=== PATIENT | male | born 1990 | race Caucasian/White ===

== ENCOUNTER 2017-07-23 20:56 | Emergency (ER) | payer SELFPAY ==
[~2017-07-23] VITALS: Ht 182.9 cm; Wt 62.6 kg
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
[2017-07-23] MEDS ORDERED: HYDROCODONE/APAP 10/325MG 1 EA TABLET PO ONE (22:30)
[2017-07-23] MEDS ORDERED: HYDROCODONE/APAP 10/325MG 1 EA TABLET ONE (22:37)
--- NOTE | 2017-07-23 22:40 | NUR ---
XRAY AT BEDSIDE
--- NOTE | 2017-07-23 23:08 | NUR ---
EMT AT BEDSIDE TO OBTAIN EKG PER MD ORDERS.
[2017-07-24] VITALS: BP 136/71
--- NOTE | 2017-07-24 00:04 | NUR ---
Patient discharged to home in stable condition. Written and verbal after care instructions given. Patient verbalizes understanding of instruction. PT ambulatory with a steady gait VITAL SIGNS WITHIN NORMAL LIMITS.
== END 2017-07-24 00:01 | disposition home or self-care (01) ==
LOC: ER 20:58
DX: S20.212A Contusion of left front wall of thorax, initial encounter (principal); S70.11XA Contusion of right thigh, initial encounter; F41.9 Anxiety disorder, unspecified; V89.2XXA Person injured in unspecified motor-vehicle accident, traffic, initial encounter; Y93.55 Activity, bike riding; Y92.410 Unspecified street and highway as the place of occurrence of the external cause; Y99.8 Other external cause status
CPT/HCPCS: 71010; 93005; 93971; 99284; A4606; Z7610